=== PATIENT | female | born 1990 | race Caucasian/White ===

== ENCOUNTER 2016-12-24 17:52 | Emergency (ER) | payer OTHER ==
[~2016-12-24] VITALS: Ht 157.5 cm; Wt 92.5 kg
[2016-12-24] MEDS ORDERED: PRENATAL VIT OTC PO (18:01)
[2016-12-24 18:52] LABS: BASO # 0.1 K/mm3 (0.0-0.2); BASO % 0.4 % (0.0-1.0); EOS # 0.1 K/mm3 (0.0-0.50); EOS % 0.6 % (0.0-3.0); LARGE UNSTAINED CELL # 0.2 K/mm3 (0.0-0.4); LARGE UNSTAINED CELL % 1.2 % (0.0-4.0); LYMPH # 1.7 K/mm3 (1.5-6.5); LYMPH % 10.2 % (24.0-44.0); MEAN CORPUSCULAR HEMOGLOBIN 29.5 pg (27.0-33.0); MEAN CORPUSCULAR HGB CONC 32.3 g/dl (32.0-36.5); MEAN CORPUSCULAR VOLUME 91.4 fl (80.0-96.0); MONO # 0.6 K/mm3 (0.0-0.8); MONO % 3.3 % (0.0-5.0); NEUTROPHILS # 14.1 K/mm3 (1.8-7.7); NEUTROPHILS % 84.2 % (36.0-66.0); PLATELET COUNT, AUTOMATED 402 k/mm3 (150-450); RED CELL DISTRIBUTION WIDTH 13.2 % (11.5-14.5); WHITE BLOOD COUNT 16.8 K/mm3 (4.0-10.0)
[2016-12-24 19:03] LABS: MICROSCOPIC INDICATED? MAN YES (NO)
[2016-12-24 19:05] LABS: BACTERIA, URINE LARGE AMOUNT; HYALINE CAST, URINE NONE SEEN /lpf (0-1); RBC, URINE TNTC /hpf (0-3); SQUAMOUS EPITHELIAL CELL URINE LARGE AMOUNT /hpf (SMALL AMT)
[2016-12-24 19:06] LABS: MICROSCOPIC EXAM PERFORMED
--- NOTE | 2016-12-24 19:20 | REPUSA ---
Clinical history: vaginal bleeding. Findings: Real-time transabdominal and transvaginal ultrasound images of the pelvis were obtained. A retroverted uterus is noted, measuring 7.9 x 3.6 x 3.7 cm. The uterus demonstrates normal echotextu re and echogenicity. The endometrial stripe Is difficult to visualize. Now intrauterine gestational sac is identified at this time. The right ovary measures 3.7 x 2.2 x 2.6 cm. There is a complex cyst in the right ovary measuring 1.5 x 1.7 x 1.5 cm. The left ovary is not visualized.There is no eviden ce of free fluid. Impression: 1. No evidence of an intrauterine gestation. 2. Complex right ovarian cyst. 3. Left ovary was not visualized. 4. Because of these findings, differential diagnosis includes early , missed , or ec topic . Follow-up with serial serum beta hCG levels is recommended for further evaluation.
[2016-12-24 20:10] VITALS: BP 152/87
== END 2016-12-24 20:16 | disposition home or self-care (01) ==
LOC: M ED 19:10
DX: N83.291 Other ovarian cyst, right side (principal); N93.9 Abnormal uterine and vaginal bleeding, unspecified; Z79.899 Other long term (current) drug therapy

== ENCOUNTER 2017-04-06 20:15 | Emergency (ER) | payer OTHER ==
[~2017-04-06] VITALS: Ht 157.5 cm; Wt 97.6 kg
[~2017-04-06 20:15] MED LIST: PRENATAL VIT OTC PO
[2017-04-06 21:26] LABS: BASO % 0.4 % (0.0-1.0); EOS # 0.2 K/mm3 (0.0-0.50); EOS % 1.4 % (0.0-3.0); LARGE UNSTAINED CELL # 0.2 K/mm3 (0.0-0.4); LARGE UNSTAINED CELL % 1.3 % (0.0-4.0); LYMPH # 1.9 K/mm3 (1.5-6.5); LYMPH % 14.5 % (24.0-44.0); MEAN CORPUSCULAR HEMOGLOBIN 29.7 pg (27.0-33.0); MEAN CORPUSCULAR HGB CONC 32.9 g/dl (32.0-36.5); MEAN CORPUSCULAR VOLUME 90.1 fl (80.0-96.0); MONO # 0.6 K/mm3 (0.0-0.8); MONO % 4.6 % (0.0-5.0); NEUTROPHILS # 9.3 K/mm3 (1.8-7.7); NEUTROPHILS % 77.8 % (36.0-66.0); PLATELET COUNT, AUTOMATED 344 k/mm3 (150-450); RED CELL DISTRIBUTION WIDTH 13.5 % (11.5-14.5); WHITE BLOOD COUNT 11.9 K/mm3 (4.0-10.0)
[2017-04-06 22:49] VITALS: BP 143/82
--- NOTE | 2017-04-06 23:20 | REPUSA ---
CLINICAL HISTORY: Bleeding TECHNIQUE: Transabdominal and endovaginal ultrasound of the pelvis was performed. FINDINGS: The uterus is anteverted. It measures 7.7 x 4.3 x 4.3 cm There is no heartbeat or pole n oted. Both ovaries are identified without adnexal mass or pelvic fluid collection. 2.5 cm left corpus lute al cyst noted. IMPRESSION: No evidence of an IUP. This could represent missed . Ectopic is not completely excluded. C linical correlation is recommended and consider repeat study in 3-4 days.
== END 2017-04-06 22:51 | disposition home or self-care (01) ==
LOC: M ED 20:15
DX: O20.0 Threatened abortion (principal); Z3A.01 Less than 8 weeks gestation of pregnancy

== ENCOUNTER → 2017-10-06 | Day surgery (SDC) | payer OTHER ==
[~2017-10-06] MED LIST changes: +LIDOCAINE 2% INJ 100 MG/5 ML SDV (FOR ANES.) As Ordered; -PRENATAL VIT OTC PO; +PROPOFOL 200 MG/20 ML VIAL As Ordered
[2017-10-06] MEDS: NS 1,000 ML IV (12:45)
== END | disposition home or self-care (01) ==
LOC: M OPP 12:27
DX: R19.7 Diarrhea, unspecified (principal); R19.4 Change in bowel habit; K58.0 Irritable bowel syndrome with diarrhea; K64.0 First degree hemorrhoids; R10.13 Epigastric pain; R11.2 Nausea with vomiting, unspecified; R06.83 Snoring
CPT/HCPCS: 45380